=== PATIENT | female | born 1955 | race Caucasian/White ===

== ENCOUNTER 2018-08-05 11:16 | Inpatient (IN) | payer OTHER ==
[2018-08-05] MEDS: SOD CHLORIDE 0.9% 1,000 ML IV (11:56)
[2018-08-05] MEDS: ENALAPRILAT 1.25 MG INJ IV (11:56)
[2018-08-05] MEDS: SOD CHLORIDE 0.9% 100 ML (12:03)
[2018-08-05] MEDS: IOHEXOL 100 ML (12:03)
[2018-08-05 12:10] LABS: ADD MAN DIFF? NO
[2018-08-05 12:12] LABS: WHITE BLOOD COUNT 7.9 10^3/ul (4.8-10.8)
[2018-08-05 12:12] LABS: BASOPHIL # 0.1 10^3/ul (0.0-0.1); BASOPHILS % 0.8 % (0.0-2.0); EOSINOPHILS # 0.1 10^3/ul (0.0-0.5); EOSINOPHILS % 1.4 % (0.0-7.0); HEMATOCRIT 40.2 % (37.0-47.0); HEMOGLOBIN 13.5 g/dl (12.0-16.0); LYMPHOCYTES # 2.1 10^3/ul (0.8-2.9); LYMPHOCYTES % 27.1 % (15.0-51.0); MEAN CORPUSCULAR HEMOGLOBIN 27.1 pg (29.0-33.0); MEAN CORPUSCULAR HGB CONC 33.6 g/dl (32.0-37.0); MEAN CORPUSCULAR VOLUME 80.7 fl (82.0-101.0); MEAN PLATELET VOLUME 10.8 fl (7.4-10.4); MONOCYTE # 0.6 10^3/ul (0.3-0.9); MONOCYTES % 7.4 % (0.0-11.0); PLATELET COUNT 289 10^3/UL (140-415); RED BLOOD COUNT 4.98 10^6/ul (4.20-5.40); RED CELL DISTRIBUTION WIDTH 12.5 % (11.5-14.5)
[2018-08-05 12:31] LABS: ALANINE AMINOTRANSFERASE 17 IU/L (13-69); ALBUMIN 4.3 g/dl (3.3-4.9); ALBUMIN/GLOBULIN RATIO 1.16; ALKALINE PHOSPHATASE 84 IU/L (42-121); ANION GAP 9 (5-13); ASPARTATE AMINO TRANSFERASE 23 IU/L (15-46); BILIRUBIN,INDIRECT 0.9 mg/dl (0-1.1); BILIRUBIN,TOTAL 0.9 mg/dl (0.2-1.3); BLOOD UREA NITROGEN 8 mg/dl (7-20); CALCIUM 9.3 mg/dl (8.4-10.2); CARBON DIOXIDE 25 mmol/L (21-31); CHLORIDE 107 mmol/L (97-110); CREATINE KINASE 95 IU/L (23-200); CREATININE 0.51 mg/dl (0.44-1.00); Estimated GFR > 60 mL/min (>60); GLUCOSE 237 mg/dl (70-220); HDL CHOLESTEROL 47 mg/dl (35-98); POTASSIUM 3.4 mmol/L (3.5-5.1); SODIUM 141 mmol/L (135-144); TRIGLYCERIDES 226 mg/dl (0-149)
[2018-08-05 12:32] LABS: INR 0.99; PARTIAL THROMBOPLASTIN TIME 28.8 Sec (23.0-35.0); PROTIME 13.2 Sec (11.9-14.9)
[2018-08-05 12:36] LABS: CHOL/HDL RATIO 7.3 RATIO; CHOLESTEROL 344 mg/dl (100-200); ETHANOL < 10.0 mg/dl; LDL CHOLESTEROL,CALCULATED 252 mg/dl
[2018-08-05 12:42] LABS: CK INDEX 1.3; CK-MB 1.23 ng/ml (0.0-2.4); TROPONIN-I < 0.012 ng/ml (0.000-0.120)
[2018-08-05 12:44] LABS: HEMOGLOBIN A1C 7.8 % (0-5.9)
[2018-08-05] MEDS: ASPIRIN 325 MG TAB PO (12:57)
[2018-08-05 13:14] LABS: ADD UMIC NO; UR ASCORBIC ACID NEGATIVE (NEGATIVE); UR BILIRUBIN (Dip) NEGATIVE (NEGATIVE); UR BLOOD (Dip) NEGATIVE (NEGATIVE); UR CLARITY CLEAR (CLEAR); UR COLOR YELLOW (YELLOW); UR GLUCOSE (Dip) 2+ mg/dL (NEGATIVE); UR KETONES (Dip) NEGATIVE (NEGATIVE); UR LEUKOCYTE ESTERASE (Dip) NEGATIVE Leu/ul (NEGATIVE); UR NITRITE (Dip) NEGATIVE (NEGATIVE); UR SPECIFIC GRAVITY (Dip) 1.025 (1.003-1.030); UR TOTAL PROTEIN (Dip) NEGATIVE (NEGATIVE); UR UROBILINOGEN (Dip) NEGATIVE (NEGATIVE)
[2018-08-05] MEDS ORDERED: NACL 0.9% 3 ML SYG IV (14:00)
[2018-08-05] MEDS ORDERED: ONDANSETRON 4 MG INJ IV (14:00)
[2018-08-05] MEDS ORDERED: DEXTROSE 50% 50 ML SYRINGE IV ×2 (14:00)
[2018-08-05] MEDS ORDERED: GLUCOSE GEL 15 GRAM TUBE PO ×2 (14:00)
[2018-08-05] MEDS ORDERED: GLUCOSE GEL 15 GRAM TUBE BUCCAL (14:00)
[2018-08-05] MEDS ORDERED: morphine 2 MG INJ IV (14:00)
[2018-08-05] MEDS ORDERED: GLUCAGON 1 MG INJ IM (14:00)
[2018-08-05] MEDS: POTASSIUM CHLORIDE (SR) 20 MEQ TAB PO (14:14)
[2018-08-05] MEDS: INSULIN ASPART [NOVOLOG] 3 ML PEN SC ×4 (19:09→22:27)
[2018-08-05] MEDS: ATORVASTATIN 80 MG TAB PO (21:33)
[2018-08-05] MEDS: CLARITHROMYCIN 500 MG TAB PO (21:33)
[2018-08-05] MEDS: AMOXICILLIN 500 MG CAP PO (21:34)
[2018-08-05] MEDS: INSULIN GLARGINE [LANTus] (100 UNITS/ML) SYG SC (22:26)
[2018-08-06] MEDS: ACCU-CHEK XX (02:48)
[2018-08-06 05:40] LABS: ADD MAN DIFF? NO
[2018-08-06 05:42] LABS: BASOPHIL # 0.1 10^3/ul (0.0-0.1); BASOPHILS % 1.2 % (0.0-2.0); EOSINOPHILS # 0.2 10^3/ul (0.0-0.5); EOSINOPHILS % 2.6 % (0.0-7.0); HEMATOCRIT 37.6 % (37.0-47.0); HEMOGLOBIN 12.3 g/dl (12.0-16.0); LYMPHOCYTES # 2.3 10^3/ul (0.8-2.9); LYMPHOCYTES % 39.6 % (15.0-51.0); MEAN CORPUSCULAR HEMOGLOBIN 26.8 pg (29.0-33.0); MEAN CORPUSCULAR HGB CONC 32.7 g/dl (32.0-37.0); MEAN CORPUSCULAR VOLUME 81.9 fl (82.0-101.0); MEAN PLATELET VOLUME 10.3 fl (7.4-10.4); MONOCYTE # 0.4 10^3/ul (0.3-0.9); NEUTROPHIL # 2.9 10^3/ul (1.6-7.5); NEUTROPHILS % 49.4 % (39.0-77.0); PLATELET COUNT 246 10^3/UL (140-415); RED BLOOD COUNT 4.59 10^6/ul (4.20-5.40); RED CELL DISTRIBUTION WIDTH 12.5 % (11.5-14.5)
[2018-08-06 05:42] LABS: WHITE BLOOD COUNT 5.9 10^3/ul (4.8-10.8)
[2018-08-06] MEDS: PANTOPRAZOLE (EC) 40 MG TAB PO (06:07)
[2018-08-06 06:09] LABS: ALANINE AMINOTRANSFERASE 17 IU/L (13-69); ALBUMIN 3.8 g/dl (3.3-4.9); ALKALINE PHOSPHATASE 61 IU/L (42-121); ANION GAP 8 (5-13); ASPARTATE AMINO TRANSFERASE 22 IU/L (15-46); BLOOD UREA NITROGEN 6 mg/dl (7-20); CARBON DIOXIDE 29 mmol/L (21-31); CHLORIDE 106 mmol/L (97-110); Estimated GFR > 60 mL/min (>60); GLUCOSE 170 mg/dl (70-220); MAGNESIUM 1.9 mg/dl (1.7-2.5); POTASSIUM 3.7 mmol/L (3.5-5.1); SODIUM 143 mmol/L (135-144); TOTAL PROTEIN 6.5 g/dl (6.1-8.1)
[2018-08-06 06:52] LABS: ERYTHROCYTE SEDIMENTATION RATE 15 mm/Hr (0-30)
[2018-08-06] MEDS: INSULIN ASPART [NOVOLOG] 3 ML PEN SC ×7 (08:05→21:00)
[2018-08-06] MEDS: ASPIRIN 81 MG TAB PO (08:24)
[2018-08-06] MEDS: CLARITHROMYCIN 500 MG TAB PO ×2 (08:24→21:06)
[2018-08-06] MEDS: AMOXICILLIN 500 MG CAP PO ×2 (08:24→21:06)
[2018-08-06] MEDS: ENOXAPARIN 40 MG/0.4 ML SYG SC (08:29)
[2018-08-06 09:36] LABS: CARCINOEMBRYONIC ANTIGEN 3.4 ng/ml (0.0-5.0)
[2018-08-06] MEDS: LISINOPRIL 5 MG TAB PO (17:26)
[2018-08-06 20:03] LABS: RAPID PLASMA REAGIN NONREACTIVE (NR)
[2018-08-06] MEDS: ATORVASTATIN 80 MG TAB PO (21:06)
[2018-08-06] MEDS: hydrALAzine 20 MG INJ IV (21:07)
[2018-08-06] MEDS: INSULIN GLARGINE [LANTus] (100 UNITS/ML) SYG SC (21:17)
[2018-08-07] MEDS: ACCU-CHEK XX (01:37)
[2018-08-07 05:25] LABS: ADD MAN DIFF? NO
[2018-08-07 05:39] LABS: WHITE BLOOD COUNT 6.4 10^3/ul (4.8-10.8)
[2018-08-07 05:39] LABS: BASOPHIL # 0.1 10^3/ul (0.0-0.1); BASOPHILS % 1.2 % (0.0-2.0); EOSINOPHILS # 0.2 10^3/ul (0.0-0.5); EOSINOPHILS % 2.3 % (0.0-7.0); HEMATOCRIT 37.3 % (37.0-47.0); HEMOGLOBIN 12.7 g/dl (12.0-16.0); LYMPHOCYTES # 2.4 10^3/ul (0.8-2.9); LYMPHOCYTES % 37.4 % (15.0-51.0); MEAN CORPUSCULAR HEMOGLOBIN 27.5 pg (29.0-33.0); MEAN CORPUSCULAR VOLUME 80.9 fl (82.0-101.0); MEAN PLATELET VOLUME 10.9 fl (7.4-10.4); MONOCYTE # 0.5 10^3/ul (0.3-0.9); MONOCYTES % 8.4 % (0.0-11.0); NEUTROPHIL # 3.3 10^3/ul (1.6-7.5); NEUTROPHILS % 50.5 % (39.0-77.0); PLATELET COUNT 253 10^3/UL (140-415); RED BLOOD COUNT 4.61 10^6/ul (4.20-5.40); RED CELL DISTRIBUTION WIDTH 12.7 % (11.5-14.5)
[2018-08-07] MEDS: PANTOPRAZOLE (EC) 40 MG TAB PO (06:16)
[2018-08-07 06:25] LABS: ANION GAP 15 (5-13); BLOOD UREA NITROGEN 10 mg/dl (7-20); CALCIUM 9.1 mg/dl (8.4-10.2); CARBON DIOXIDE 25 mmol/L (21-31); CHLORIDE 107 mmol/L (97-110); CREATININE 0.51 mg/dl (0.44-1.00); Estimated GFR > 60 mL/min (>60); GLUCOSE 138 mg/dl (70-220); POTASSIUM 3.2 mmol/L (3.5-5.1); SODIUM 147 mmol/L (135-144)
[2018-08-07] MEDS: ACETAMINOPHEN 325 MG TAB PO (06:27)
[2018-08-07] MEDS: INSULIN ASPART [NOVOLOG] 3 ML PEN SC ×7 (08:02→20:25)
[2018-08-07] MEDS: CLARITHROMYCIN 500 MG TAB PO ×2 (08:28→20:24)
[2018-08-07] MEDS: ASPIRIN 81 MG TAB PO (08:29)
[2018-08-07] MEDS: AMOXICILLIN 500 MG CAP PO ×2 (08:29→20:24)
[2018-08-07] MEDS: ENOXAPARIN 40 MG/0.4 ML SYG SC (08:34)
[2018-08-07] MEDS: POTASSIUM CHLORIDE (SR) 20 MEQ TAB PO (13:19)
[2018-08-07] MEDS: SODIUM CHLORIDE 0.45% 500 ML BAG IV* (13:20)
[2018-08-07] MEDS ORDERED: LISINOPRIL 5 MG TAB PO (18:00)
[2018-08-07] MEDS: LISINOPRIL 5 MG TAB PO (18:29)
[2018-08-07] MEDS: ATORVASTATIN 80 MG TAB PO (20:24)
[2018-08-07] MEDS: INSULIN GLARGINE [LANTus] (100 UNITS/ML) SYG SC (20:31)
[2018-08-07] MEDS: hydrALAzine 20 MG INJ IV (20:34)
[2018-08-08] MEDS: BACLOFEN 10 MG TAB PO ×2 (01:06→20:19)
[2018-08-08] MEDS: ACCU-CHEK XX (01:06)
[2018-08-08] MEDS: PANTOPRAZOLE (EC) 40 MG TAB PO ×3 (05:45→17:50)
[2018-08-08 07:01] LABS: ANION GAP 11 (5-13); BLOOD UREA NITROGEN 10 mg/dl (7-20); CALCIUM 8.9 mg/dl (8.4-10.2); CARBON DIOXIDE 24 mmol/L (21-31); CHLORIDE 107 mmol/L (97-110); CREATININE 0.53 mg/dl (0.44-1.00); Estimated GFR > 60 mL/min (>60); GLUCOSE 110 mg/dl (70-220); MAGNESIUM 1.8 mg/dl (1.7-2.5); POTASSIUM 3.4 mmol/L (3.5-5.1); SODIUM 142 mmol/L (135-144)
[2018-08-08 07:53] LABS: AMPHETAMINE/METHAMPHETAMINE Negative (NEGATIVE); BARBITURATES Negative (NEGATIVE); BENZODIAZEPINES Negative (NEGATIVE); CANNABINOIDS Negative (NEGATIVE); COCAINE Negative (NEGATIVE); OPIATES Negative (NEGATIVE)
[2018-08-08] MEDS: INSULIN ASPART [NOVOLOG] 3 ML PEN SC ×7 (07:58→20:26)
[2018-08-08] MEDS: ASPIRIN 81 MG TAB PO (08:53)
[2018-08-08] MEDS: AMOXICILLIN 500 MG CAP PO ×3 (08:53→20:18)
[2018-08-08] MEDS: CLARITHROMYCIN 500 MG TAB PO ×2 (08:54→20:19)
[2018-08-08] MEDS ORDERED: BISMUTH SUBSALICYLATE 120 ML BTL PO (09:00)
[2018-08-08] MEDS: ENOXAPARIN 40 MG/0.4 ML SYG SC (09:10)
[2018-08-08 10:01] LABS: HEPATITIS C VIRAL ANTIBODY NEGATIVE (NEGATIVE)
[2018-08-08] MEDS: LISINOPRIL 5 MG TAB PO ×3 (10:05→20:19)
[2018-08-08 10:45] LABS: CANCER ANTIGEN 125 40.2 U/ml (0.0-35.0)
[2018-08-08] MEDS: hydrALAzine 20 MG INJ IV (11:48)
[2018-08-08] MEDS: ATORVASTATIN 80 MG TAB PO (20:19)
[2018-08-08] MEDS: INSULIN GLARGINE [LANTus] (100 UNITS/ML) SYG SC (20:26)
[2018-08-08] MEDS: DOCUSATE SODIUM 100 MG CAP PO (20:30)
[2018-08-08] MEDS: INFLUENZA VIRUS VACCINE 0.5 ML (DISPENSING) IM* (20:35)
[2018-08-09] MEDS: ACCU-CHEK XX (02:00)
[2018-08-09] MEDS: ACETAMINOPHEN 325 MG TAB PO (04:12)
[2018-08-09] MEDS: PANTOPRAZOLE (EC) 40 MG TAB PO ×2 (06:07→17:31)
[2018-08-09] MEDS: INSULIN ASPART [NOVOLOG] 3 ML PEN SC ×7 (07:39→20:21)
[2018-08-09] MEDS: LISINOPRIL 5 MG TAB PO (08:03)
[2018-08-09] MEDS: CLARITHROMYCIN 500 MG TAB PO ×2 (08:03→20:21)
[2018-08-09] MEDS: ASPIRIN 81 MG TAB PO (08:03)
[2018-08-09] MEDS: AMOXICILLIN 500 MG CAP PO ×2 (08:03→20:20)
[2018-08-09] MEDS: ENOXAPARIN 40 MG/0.4 ML SYG SC (08:07)
[2018-08-09] MEDS: LISINOPRIL 10 MG TAB PO (20:21)
[2018-08-09] MEDS: ATORVASTATIN 80 MG TAB PO (20:21)
[2018-08-09] MEDS: INSULIN GLARGINE [LANTus] (100 UNITS/ML) SYG SC (20:27)
[2018-08-10] MEDS: ACCU-CHEK XX (02:53)
[2018-08-10] MEDS: PANTOPRAZOLE (EC) 40 MG TAB PO ×2 (06:21→17:18)
[2018-08-10] MEDS: INSULIN ASPART [NOVOLOG] 3 ML PEN SC ×7 (07:55→20:38)
[2018-08-10] MEDS: LISINOPRIL 10 MG TAB PO ×2 (08:45→20:32)
[2018-08-10] MEDS: CLARITHROMYCIN 500 MG TAB PO ×2 (08:45→20:32)
[2018-08-10] MEDS: AMOXICILLIN 500 MG CAP PO ×2 (08:45→20:32)
[2018-08-10] MEDS: ASPIRIN 81 MG TAB PO (08:45)
[2018-08-10] MEDS: ENOXAPARIN 40 MG/0.4 ML SYG SC (08:56)
[2018-08-10] MEDS: hydrALAzine 20 MG INJ IV (12:03)
[2018-08-10] MEDS: AMLODIPINE 2.5 MG TAB PO (12:03)
[2018-08-10] MEDS: ATORVASTATIN 80 MG TAB PO (20:32)
[2018-08-10] MEDS: INSULIN GLARGINE [LANTus] (100 UNITS/ML) SYG SC (20:47)
[2018-08-11] MEDS: ACCU-CHEK XX (02:46)
[2018-08-11 05:42] LABS: WHITE BLOOD COUNT 6.8 10^3/ul (4.8-10.8)
[2018-08-11 05:42] LABS: ADD MAN DIFF? NO; BASOPHIL # 0.1 10^3/ul (0.0-0.1); EOSINOPHILS # 0.2 10^3/ul (0.0-0.5); EOSINOPHILS % 2.8 % (0.0-7.0); HEMATOCRIT 37.8 % (37.0-47.0); HEMOGLOBIN 12.3 g/dl (12.0-16.0); LYMPHOCYTES # 2.2 10^3/ul (0.8-2.9); LYMPHOCYTES % 33.1 % (15.0-51.0); MEAN CORPUSCULAR HGB CONC 32.5 g/dl (32.0-37.0); MEAN CORPUSCULAR VOLUME 83.1 fl (82.0-101.0); MEAN PLATELET VOLUME 10.8 fl (7.4-10.4); MONOCYTE # 0.6 10^3/ul (0.3-0.9); MONOCYTES % 8.6 % (0.0-11.0); NEUTROPHIL # 3.7 10^3/ul (1.6-7.5); NEUTROPHILS % 54.2 % (39.0-77.0); PLATELET COUNT 241 10^3/UL (140-415); RED BLOOD COUNT 4.55 10^6/ul (4.20-5.40)
[2018-08-11] MEDS: PANTOPRAZOLE (EC) 40 MG TAB PO ×2 (05:59→18:10)
[2018-08-11 06:13] LABS: ANION GAP 9 (5-13); BLOOD UREA NITROGEN 16 mg/dl (7-20); CALCIUM 8.8 mg/dl (8.4-10.2); CARBON DIOXIDE 27 mmol/L (21-31); CHLORIDE 106 mmol/L (97-110); CREATININE 0.55 mg/dl (0.44-1.00); Estimated GFR > 60 mL/min (>60); GLUCOSE 133 mg/dl (70-220); POTASSIUM 3.9 mmol/L (3.5-5.1); SODIUM 142 mmol/L (135-144)
[2018-08-11] MEDS: INSULIN ASPART [NOVOLOG] 3 ML PEN SC ×7 (08:00→21:00)
[2018-08-11] MEDS: AMOXICILLIN 500 MG CAP PO ×2 (09:56→21:10)
[2018-08-11] MEDS: CLARITHROMYCIN 500 MG TAB PO ×2 (09:56→21:10)
[2018-08-11] MEDS: AMLODIPINE 2.5 MG TAB PO (09:57)
[2018-08-11] MEDS: ASPIRIN 81 MG TAB PO (09:57)
[2018-08-11] MEDS: LISINOPRIL 10 MG TAB PO ×2 (09:57→21:11)
[2018-08-11] MEDS: ENOXAPARIN 40 MG/0.4 ML SYG SC (09:59)
[2018-08-11] MEDS: ATORVASTATIN 80 MG TAB PO (21:10)
[2018-08-11] MEDS: INSULIN GLARGINE [LANTus] (100 UNITS/ML) SYG SC (21:22)
[2018-08-12] MEDS: ACCU-CHEK XX (01:43)
[2018-08-12] MEDS: PANTOPRAZOLE (EC) 40 MG TAB PO ×2 (05:54→17:43)
[2018-08-12] MEDS: DOCUSATE SODIUM 100 MG CAP PO (05:58)
[2018-08-12] MEDS: INSULIN ASPART [NOVOLOG] 3 ML PEN SC ×6 (08:04→17:55)
[2018-08-12] MEDS: LISINOPRIL 10 MG TAB PO (08:28)
[2018-08-12] MEDS: AMLODIPINE 2.5 MG TAB PO (08:29)
[2018-08-12] MEDS: ASPIRIN 81 MG TAB PO (08:29)
[2018-08-12] MEDS: AMOXICILLIN 500 MG CAP PO (08:29)
[2018-08-12] MEDS: CLARITHROMYCIN 500 MG TAB PO (08:29)
[2018-08-12] MEDS: ENOXAPARIN 40 MG/0.4 ML SYG SC (08:31)
[2018-08-12] MEDS: INSULIN GLARGINE [LANTus] (100 UNITS/ML) SYG SC (19:46)
== END 2018-08-12 19:50 | DRG 65 ==
LOC: E/R 11:16 → 6WM 16:50
PROVIDERS: Internal Medicine
DX: I63.50 Cerebral infarction due to unspecified occlusion or stenosis of unspecified cerebral artery (principal); G81.94 Hemiplegia, unspecified affecting left nondominant side; I16.1 Hypertensive emergency; I50.32 Chronic diastolic (congestive) heart failure; E78.5 Hyperlipidemia, unspecified; E11.65 Type 2 diabetes mellitus with hyperglycemia; N83.201 Unspecified ovarian cyst, right side; E87.6 Hypokalemia; I11.0 Hypertensive heart disease with heart failure; K27.7 Chronic peptic ulcer, site unspecified, without hemorrhage or perforation; B96.81 Helicobacter pylori [H. pylori] as the cause of diseases classified elsewhere; R97.1 Elevated cancer antigen 125 [CA 125]; I65.23 Occlusion and stenosis of bilateral carotid arteries; Z79.84 Long term (current) use of oral hypoglycemic drugs
CPT/HCPCS: 36415; 70450; 70496; 70498; 70551; 71045; 72196; 76705; 80048; 80053; 80061; 80307; 81003; 82378; 82550; 82553; 82962; 83036; 83735; 84100; 84443; 84484; 85025; 85610; 85651; 85730; 86304; 86592; 86803; 90686; 92523; 92526; 92610; 93306; 96374; 97110; 97163; 97167; 97530; 99291-25

== ENCOUNTER 2018-08-12 20:14 | Inpatient (IN) | payer OTHER ==
[2018-08-12] MEDS ORDERED: GLUCAGON 1 MG INJ IM (21:13)
[2018-08-12] MEDS ORDERED: NACL 0.9% 3 ML SYG IV (21:13)
[2018-08-12] MEDS ORDERED: INSULIN ASPART [NOVOLOG] 3 ML PEN SC ×2 (21:13)
[2018-08-12] MEDS ORDERED: BISMUTH SUBSALICYLATE 120 ML BTL PO (21:13)
[2018-08-12] MEDS ORDERED: ENOXAPARIN 40 MG/0.4 ML SYG SC (21:13)
[2018-08-12] MEDS ORDERED: INSULIN GLARGINE [LANTus] (100 UNITS/ML) SYG SC (21:13)
[2018-08-12] MEDS ORDERED: hydrALAzine 20 MG INJ IV (21:13)
[2018-08-12] MEDS ORDERED: ONDANSETRON 4 MG INJ IV (21:13)
[2018-08-12] MEDS ORDERED: ACCU-CHEK XX (21:13)
[2018-08-12] MEDS ORDERED: GLUCOSE GEL 15 GRAM TUBE BUCCAL (21:13)
[2018-08-12] MEDS ORDERED: GLUCOSE GEL 15 GRAM TUBE PO ×2 (21:13)
[2018-08-12] MEDS ORDERED: DEXTROSE 50% 50 ML SYRINGE IV ×2 (21:13)
[2018-08-12] MEDS ORDERED: DOCUSATE SODIUM 100 MG CAP PO (21:13)
[2018-08-12] MEDS ORDERED: morphine 2 MG INJ IV (21:13)
[2018-08-13] MEDS: PANTOPRAZOLE (EC) 40 MG TAB PO ×2 (06:39→17:34)
[2018-08-13 07:19] LABS: ADD MAN DIFF? NO
[2018-08-13 07:24] LABS: WHITE BLOOD COUNT 7.6 10^3/ul (4.8-10.8)
[2018-08-13 07:24] LABS: BASOPHIL # 0.1 10^3/ul (0.0-0.1); BASOPHILS % 1.2 % (0.0-2.0); EOSINOPHILS # 0.2 10^3/ul (0.0-0.5); EOSINOPHILS % 2.5 % (0.0-7.0); HEMATOCRIT 40.3 % (37.0-47.0); HEMOGLOBIN 12.9 g/dl (12.0-16.0); LYMPHOCYTES # 2.3 10^3/ul (0.8-2.9); LYMPHOCYTES % 29.7 % (15.0-51.0); MEAN CORPUSCULAR HEMOGLOBIN 26.7 pg (29.0-33.0); MEAN CORPUSCULAR VOLUME 83.3 fl (82.0-101.0); MEAN PLATELET VOLUME 11.2 fl (7.4-10.4); MONOCYTE # 0.7 10^3/ul (0.3-0.9); MONOCYTES % 8.9 % (0.0-11.0); NEUTROPHIL # 4.4 10^3/ul (1.6-7.5); NEUTROPHILS % 57.4 % (39.0-77.0); PLATELET COUNT 265 10^3/UL (140-415); RED BLOOD COUNT 4.84 10^6/ul (4.20-5.40)
[2018-08-13] MEDS: ACCU-CHEK XX ×2 (07:43→17:28)
[2018-08-13 07:48] LABS: ALANINE AMINOTRANSFERASE 71 IU/L (13-69); ALBUMIN 3.9 g/dl (3.3-4.9); ALBUMIN/GLOBULIN RATIO 1.11; ALKALINE PHOSPHATASE 85 IU/L (42-121); ANION GAP 11 (5-13); ASPARTATE AMINO TRANSFERASE 67 IU/L (15-46); BILIRUBIN,INDIRECT 0.5 mg/dl (0-1.1); BILIRUBIN,TOTAL 0.5 mg/dl (0.2-1.3); BLOOD UREA NITROGEN 19 mg/dl (7-20); CALCIUM 9.4 mg/dl (8.4-10.2); CARBON DIOXIDE 26 mmol/L (21-31); CHLORIDE 106 mmol/L (97-110); CREATININE 0.61 mg/dl (0.44-1.00); Estimated GFR > 60 mL/min (>60); GLUCOSE 165 mg/dl (70-220); POTASSIUM 4.1 mmol/L (3.5-5.1); SODIUM 143 mmol/L (135-144); TOTAL PROTEIN 7.4 g/dl (6.1-8.1)
[2018-08-13] MEDS: metFORMIN 500 MG TAB PO ×2 (08:41→17:33)
[2018-08-13] MEDS: AMOXICILLIN 500 MG CAP PO ×2 (08:41→21:59)
[2018-08-13] MEDS: AMLODIPINE 2.5 MG TAB PO (08:41)
[2018-08-13] MEDS: LISINOPRIL 10 MG TAB PO ×2 (08:42→21:59)
[2018-08-13] MEDS: ASPIRIN 81 MG TAB PO (08:42)
[2018-08-13] MEDS: CLARITHROMYCIN 500 MG TAB PO ×2 (08:45→21:50)
[2018-08-13 11:00] LABS: ADD UMIC YES; UR ASCORBIC ACID NEGATIVE (NEGATIVE); UR BACTERIA FEW /HPF (NONE SEEN); UR BILIRUBIN (Dip) NEGATIVE (NEGATIVE); UR BLOOD (Dip) NEGATIVE (NEGATIVE); UR CLARITY SLIGHTLY CLOUDY (CLEAR); UR COLOR YELLOW (YELLOW); UR GLUCOSE (Dip) NEGATIVE (NEGATIVE); UR KETONES (Dip) NEGATIVE (NEGATIVE); UR LEUKOCYTE ESTERASE (Dip) NEGATIVE Leu/ul (NEGATIVE); UR MUCUS MANY /HPF (NONE SEEN); UR NITRITE (Dip) NEGATIVE (NEGATIVE); UR RBC 1 /HPF (0-5); UR SPECIFIC GRAVITY (Dip) 1.025 (1.003-1.030); UR SQUAMOUS EPITHELIAL CELL FEW /HPF (FEW); UR TOTAL PROTEIN (Dip) 1+ mg/dl (NEGATIVE); UR UROBILINOGEN (Dip) NEGATIVE (NEGATIVE); UR WBC 3 /HPF (0-5)
[2018-08-13] MEDS: ACETAMINOPHEN 325 MG TAB PO (18:27)
[2018-08-13] MEDS: DOCUSATE SODIUM 100 MG CAP PO (21:50)
[2018-08-13] MEDS: ATORVASTATIN 80 MG TAB PO (21:59)
[2018-08-14] MEDS: PANTOPRAZOLE (EC) 40 MG TAB PO ×2 (06:33→17:42)
[2018-08-14] MEDS: ACCU-CHEK XX ×2 (07:57→17:34)
[2018-08-14] MEDS: metFORMIN 500 MG TAB PO ×2 (07:58→17:36)
[2018-08-14] MEDS: AMOXICILLIN 500 MG CAP PO ×2 (09:09→20:33)
[2018-08-14] MEDS: SENNA TAB PO (09:09)
[2018-08-14] MEDS: ASPIRIN 81 MG TAB PO (09:09)
[2018-08-14] MEDS: CLARITHROMYCIN 500 MG TAB PO ×2 (09:09→20:33)
[2018-08-14] MEDS: DOCUSATE SODIUM 100 MG CAP PO ×2 (09:09→20:33)
[2018-08-14] MEDS: AMLODIPINE 2.5 MG TAB PO (09:23)
[2018-08-14] MEDS: LISINOPRIL 10 MG TAB PO ×2 (09:23→20:33)
[2018-08-14] MEDS: ENOXAPARIN 40 MG/0.4 ML SYG SC (09:33)
[2018-08-14] MEDS: ATORVASTATIN 80 MG TAB PO (20:33)
[2018-08-15] MEDS: PANTOPRAZOLE (EC) 40 MG TAB PO ×2 (06:40→17:18)
[2018-08-15] MEDS: AMLODIPINE 2.5 MG TAB PO ×2 (09:00→12:56)
[2018-08-15] MEDS: LISINOPRIL 10 MG TAB PO ×3 (09:00→20:39)
[2018-08-15] MEDS: ACCU-CHEK XX ×2 (09:04→17:15)
[2018-08-15] MEDS: ENOXAPARIN 40 MG/0.4 ML SYG SC (09:20)
[2018-08-15] MEDS: ASPIRIN 81 MG TAB PO (09:22)
[2018-08-15] MEDS: metFORMIN 500 MG TAB PO ×2 (09:22→17:16)
[2018-08-15] MEDS: DOCUSATE SODIUM 100 MG CAP PO ×2 (09:22→20:39)
[2018-08-15] MEDS: SENNA TAB PO (09:22)
[2018-08-15] MEDS: CLARITHROMYCIN 500 MG TAB PO (09:23)
[2018-08-15] MEDS: AMOXICILLIN 500 MG CAP PO ×2 (09:23→20:40)
[2018-08-15] MEDS: CIPROFLOXACIN 500 MG TAB PO (17:16)
[2018-08-15] MEDS: ATORVASTATIN 80 MG TAB PO (20:39)
[2018-08-16] MEDS: CIPROFLOXACIN 500 MG TAB PO ×2 (06:12→17:23)
[2018-08-16] MEDS: PANTOPRAZOLE (EC) 40 MG TAB PO ×2 (06:12→17:23)
[2018-08-16] MEDS: ACCU-CHEK XX ×2 (07:55→17:23)
[2018-08-16] MEDS: metFORMIN 500 MG TAB PO ×2 (08:00→17:23)
[2018-08-16] MEDS: AMOXICILLIN 500 MG CAP PO ×2 (08:54→20:03)
[2018-08-16] MEDS: ASPIRIN 81 MG TAB PO (08:55)
[2018-08-16] MEDS: AMLODIPINE 2.5 MG TAB PO (08:55)
[2018-08-16] MEDS: SENNA TAB PO (08:56)
[2018-08-16] MEDS: LISINOPRIL 10 MG TAB PO ×2 (08:56→20:03)
[2018-08-16] MEDS: DOCUSATE SODIUM 100 MG CAP PO ×2 (08:56→20:03)
[2018-08-16] MEDS: ENOXAPARIN 40 MG/0.4 ML SYG SC (09:01)
[2018-08-16] MEDS: ATORVASTATIN 80 MG TAB PO (20:03)
[2018-08-17] MEDS: MAGNESIUM HYDROXIDE 30ML CUP PO (01:43)
[2018-08-17] MEDS: CIPROFLOXACIN 500 MG TAB PO ×2 (05:39→17:39)
[2018-08-17] MEDS: PANTOPRAZOLE (EC) 40 MG TAB PO ×2 (05:39→17:47)
[2018-08-17] MEDS: ACCU-CHEK XX ×2 (07:37→17:22)
[2018-08-17] MEDS: ASPIRIN 81 MG TAB PO (08:28)
[2018-08-17] MEDS: metFORMIN 500 MG TAB PO ×2 (08:28→17:39)
[2018-08-17] MEDS: SENNA TAB PO (08:28)
[2018-08-17] MEDS: DOCUSATE SODIUM 100 MG CAP PO ×2 (08:28→20:26)
[2018-08-17] MEDS: AMOXICILLIN 500 MG CAP PO ×2 (08:28→20:35)
[2018-08-17] MEDS: LISINOPRIL 10 MG TAB PO ×2 (08:29→20:27)
[2018-08-17] MEDS: AMLODIPINE 2.5 MG TAB PO (08:29)
[2018-08-17] MEDS: ENOXAPARIN 40 MG/0.4 ML SYG SC (08:32)
[2018-08-17] MEDS: ONDANSETRON (ODT) 4 MG TAB ODT (17:39)
[2018-08-17] MEDS: ATORVASTATIN 80 MG TAB PO (20:26)
[2018-08-18] MEDS: CIPROFLOXACIN 500 MG TAB PO ×2 (06:28→17:15)
[2018-08-18] MEDS: PANTOPRAZOLE (EC) 40 MG TAB PO ×2 (06:29→17:15)
[2018-08-18] MEDS: ACCU-CHEK XX ×2 (07:05→17:05)
[2018-08-18] MEDS: metFORMIN 500 MG TAB PO ×2 (07:36→17:15)
[2018-08-18] MEDS: DOCUSATE SODIUM 100 MG CAP PO ×2 (08:31→22:02)
[2018-08-18] MEDS: LISINOPRIL 10 MG TAB PO ×2 (08:31→22:03)
[2018-08-18] MEDS: AMLODIPINE 2.5 MG TAB PO (08:31)
[2018-08-18] MEDS: SENNA TAB PO (08:31)
[2018-08-18] MEDS: ASPIRIN 81 MG TAB PO (08:31)
[2018-08-18] MEDS: ENOXAPARIN 40 MG/0.4 ML SYG SC (08:32)
[2018-08-18] MEDS: ATORVASTATIN 80 MG TAB PO (22:02)
[2018-08-18] MEDS: LACTULOSE 30ML CUP PO (22:03)
[2018-08-19] MEDS: PANTOPRAZOLE (EC) 40 MG TAB PO ×2 (06:12→17:21)
[2018-08-19] MEDS: CIPROFLOXACIN 500 MG TAB PO ×2 (06:12→17:21)
[2018-08-19] MEDS: ACCU-CHEK XX ×2 (07:05→16:52)
[2018-08-19] MEDS: metFORMIN 500 MG TAB PO ×2 (08:03→16:52)
[2018-08-19] MEDS: ENOXAPARIN 40 MG/0.4 ML SYG SC (09:10)
[2018-08-19] MEDS: SENNA TAB PO (09:10)
[2018-08-19] MEDS: ASPIRIN 81 MG TAB PO (09:10)
[2018-08-19] MEDS: AMLODIPINE 2.5 MG TAB PO (09:10)
[2018-08-19] MEDS: LISINOPRIL 10 MG TAB PO ×2 (09:11→20:44)
[2018-08-19] MEDS: DOCUSATE SODIUM 100 MG CAP PO ×2 (09:11→20:44)
[2018-08-19] MEDS: ATORVASTATIN 80 MG TAB PO (20:44)
[2018-08-20] MEDS: CIPROFLOXACIN 500 MG TAB PO (05:35)
[2018-08-20] MEDS: PANTOPRAZOLE (EC) 40 MG TAB PO ×2 (05:35→17:12)
[2018-08-20] MEDS: ACCU-CHEK XX ×2 (07:40→17:12)
[2018-08-20] MEDS: metFORMIN 500 MG TAB PO ×2 (07:44→17:13)
[2018-08-20] MEDS: ASPIRIN 81 MG TAB PO ×2 (09:00→09:51)
[2018-08-20] MEDS: AMLODIPINE 2.5 MG TAB PO ×2 (09:00→09:51)
[2018-08-20] MEDS: LISINOPRIL 10 MG TAB PO ×3 (09:00→20:33)
[2018-08-20] MEDS: SENNA TAB PO (09:51)
[2018-08-20] MEDS: DOCUSATE SODIUM 100 MG CAP PO ×2 (09:51→20:33)
[2018-08-20] MEDS: ENOXAPARIN 40 MG/0.4 ML SYG SC (09:54)
[2018-08-20] MEDS: ONDANSETRON (ODT) 4 MG TAB ODT (12:31)
[2018-08-20] MEDS: ATORVASTATIN 80 MG TAB PO (20:33)
[2018-08-21] MEDS: PANTOPRAZOLE (EC) 40 MG TAB PO ×2 (07:15→17:44)
[2018-08-21] MEDS: metFORMIN 500 MG TAB PO ×2 (08:15→17:42)
[2018-08-21] MEDS: ACCU-CHEK XX ×2 (08:15→17:42)
[2018-08-21] MEDS: ASPIRIN 81 MG TAB PO (09:30)
[2018-08-21] MEDS: LISINOPRIL 10 MG TAB PO ×2 (09:30→21:10)
[2018-08-21] MEDS: SENNA TAB PO (09:30)
[2018-08-21] MEDS: DOCUSATE SODIUM 100 MG CAP PO ×2 (09:31→21:00)
[2018-08-21] MEDS: ONDANSETRON (ODT) 4 MG TAB ODT (09:31)
[2018-08-21] MEDS: AMLODIPINE 2.5 MG TAB PO (09:31)
[2018-08-21] MEDS: ACETAMINOPHEN 325 MG TAB PO (09:31)
[2018-08-21] MEDS: ENOXAPARIN 40 MG/0.4 ML SYG SC (09:34)
[2018-08-21] MEDS: BACLOFEN 10 MG TAB PO (14:18)
[2018-08-21] MEDS: ATORVASTATIN 80 MG TAB PO (21:10)
[2018-08-22] MEDS: PANTOPRAZOLE (EC) 40 MG TAB PO ×2 (05:29→17:36)
[2018-08-22] MEDS: ACCU-CHEK XX ×2 (07:05→17:05)
[2018-08-22] MEDS: metFORMIN 500 MG TAB PO ×2 (07:59→17:36)
[2018-08-22] MEDS: SENNA TAB PO (08:53)
[2018-08-22] MEDS: ASPIRIN 81 MG TAB PO (08:53)
[2018-08-22] MEDS: DOCUSATE SODIUM 100 MG CAP PO ×2 (08:53→20:07)
[2018-08-22] MEDS: LISINOPRIL 10 MG TAB PO ×2 (08:53→20:13)
[2018-08-22] MEDS: AMLODIPINE 2.5 MG TAB PO (08:53)
[2018-08-22] MEDS: ENOXAPARIN 40 MG/0.4 ML SYG SC (08:54)
[2018-08-22] MEDS: ONDANSETRON (ODT) 4 MG TAB ODT (12:41)
[2018-08-22] MEDS: ACETAMINOPHEN 325 MG TAB PO (16:07)
[2018-08-22] MEDS: ATORVASTATIN 80 MG TAB PO (20:07)
[2018-08-23] MEDS: PANTOPRAZOLE (EC) 40 MG TAB PO ×2 (05:34→17:17)
[2018-08-23] MEDS: ACCU-CHEK XX ×2 (08:05→17:17)
[2018-08-23] MEDS: SENNA TAB PO (08:16)
[2018-08-23] MEDS: DOCUSATE SODIUM 100 MG CAP PO ×2 (08:16→20:52)
[2018-08-23] MEDS: metFORMIN 500 MG TAB PO ×2 (08:16→17:17)
[2018-08-23] MEDS: ASPIRIN 81 MG TAB PO (08:16)
[2018-08-23] MEDS: AMLODIPINE 2.5 MG TAB PO (08:19)
[2018-08-23] MEDS: LISINOPRIL 10 MG TAB PO ×2 (08:19→21:03)
[2018-08-23] MEDS: ENOXAPARIN 40 MG/0.4 ML SYG SC (08:20)
[2018-08-23] MEDS: ATORVASTATIN 80 MG TAB PO (20:49)
[2018-08-23] MEDS: ACETAMINOPHEN 325 MG TAB PO (20:49)
[2018-08-24] MEDS: PANTOPRAZOLE (EC) 40 MG TAB PO ×2 (05:55→17:37)
[2018-08-24] MEDS: metFORMIN 500 MG TAB PO ×2 (07:52→17:37)
[2018-08-24] MEDS: ACCU-CHEK XX ×2 (07:52→17:37)
[2018-08-24] MEDS: DOCUSATE SODIUM 100 MG CAP PO ×2 (09:00→20:12)
[2018-08-24] MEDS: SENNA TAB PO (09:00)
[2018-08-24] MEDS: LISINOPRIL 10 MG TAB PO ×2 (09:09→20:22)
[2018-08-24] MEDS: AMLODIPINE 2.5 MG TAB PO (09:09)
[2018-08-24] MEDS: ASPIRIN 81 MG TAB PO (09:09)
[2018-08-24] MEDS: ENOXAPARIN 40 MG/0.4 ML SYG SC (09:10)
[2018-08-24] MEDS: ATORVASTATIN 80 MG TAB PO (20:12)
[2018-08-25] MEDS: PANTOPRAZOLE (EC) 40 MG TAB PO ×2 (05:45→17:36)
[2018-08-25] MEDS: ACCU-CHEK XX ×2 (07:05→17:05)
[2018-08-25] MEDS: metFORMIN 500 MG TAB PO ×2 (08:01→17:36)
[2018-08-25] MEDS: ASPIRIN 81 MG TAB PO (09:00)
[2018-08-25] MEDS: AMLODIPINE 2.5 MG TAB PO (09:00)
[2018-08-25] MEDS: LISINOPRIL 10 MG TAB PO ×2 (09:00→20:36)
[2018-08-25] MEDS: DOCUSATE SODIUM 100 MG CAP PO ×2 (09:00→20:39)
[2018-08-25] MEDS: SENNA TAB PO (09:00)
[2018-08-25] MEDS: ENOXAPARIN 40 MG/0.4 ML SYG SC (09:01)
[2018-08-25] MEDS: ONDANSETRON (ODT) 4 MG TAB ODT (13:54)
[2018-08-25] MEDS: BACLOFEN 10 MG TAB PO (16:51)
[2018-08-25] MEDS: ATORVASTATIN 80 MG TAB PO (20:36)
[2018-08-25] MEDS: ACETAMINOPHEN 325 MG TAB PO (22:53)
[2018-08-26] MEDS: PANTOPRAZOLE (EC) 40 MG TAB PO ×2 (05:52→17:19)
[2018-08-26] MEDS: ACCU-CHEK XX ×2 (07:05→17:05)
[2018-08-26] MEDS: metFORMIN 500 MG TAB PO ×2 (07:49→17:19)
[2018-08-26] MEDS: LISINOPRIL 10 MG TAB PO ×2 (08:52→20:31)
[2018-08-26] MEDS: ACETAMINOPHEN 325 MG TAB PO (08:52)
[2018-08-26] MEDS: ONDANSETRON (ODT) 4 MG TAB ODT (08:52)
[2018-08-26] MEDS: SENNA TAB PO (08:52)
[2018-08-26] MEDS: ENOXAPARIN 40 MG/0.4 ML SYG SC (08:52)
[2018-08-26] MEDS: ASPIRIN 81 MG TAB PO (08:52)
[2018-08-26] MEDS: DOCUSATE SODIUM 100 MG CAP PO ×2 (08:52→20:30)
[2018-08-26] MEDS: AMLODIPINE 2.5 MG TAB PO (08:59)
[2018-08-26] MEDS: LACTULOSE 30ML CUP PO (20:30)
[2018-08-26] MEDS: ATORVASTATIN 80 MG TAB PO (20:30)
[2018-08-27] MEDS: PANTOPRAZOLE (EC) 40 MG TAB PO ×2 (06:27→17:23)
[2018-08-27] MEDS: ACETAMINOPHEN 325 MG TAB PO ×2 (06:27→20:01)
[2018-08-27] MEDS: metFORMIN 500 MG TAB PO ×2 (07:52→18:04)
[2018-08-27] MEDS: ACCU-CHEK XX ×2 (07:52→18:04)
[2018-08-27] MEDS: ASPIRIN 81 MG TAB PO (08:24)
[2018-08-27] MEDS: LISINOPRIL 10 MG TAB PO ×2 (08:24→20:01)
[2018-08-27] MEDS: AMLODIPINE 2.5 MG TAB PO (08:24)
[2018-08-27] MEDS: SENNA TAB PO (08:25)
[2018-08-27] MEDS: DOCUSATE SODIUM 100 MG CAP PO ×2 (08:25→20:06)
[2018-08-27] MEDS: ENOXAPARIN 40 MG/0.4 ML SYG SC (09:00)
[2018-08-27] MEDS: BACLOFEN 10 MG TAB PO (19:56)
[2018-08-27] MEDS: ATORVASTATIN 80 MG TAB PO (20:01)
[2018-08-27] MEDS: HYDROCODONE/APAP (5/325) TAB PO (21:43)
[2018-08-28] MEDS: PANTOPRAZOLE (EC) 40 MG TAB PO ×2 (05:45→17:25)
[2018-08-28] MEDS: metFORMIN 500 MG TAB PO ×2 (07:44→17:25)
[2018-08-28] MEDS: ACCU-CHEK XX ×2 (07:44→17:25)
[2018-08-28] MEDS: HYDROCODONE/APAP (5/325) TAB PO ×2 (07:45→17:25)
[2018-08-28] MEDS: DOCUSATE SODIUM 100 MG CAP PO ×2 (09:00→20:34)
[2018-08-28] MEDS: SENNA TAB PO (09:00)
[2018-08-28] MEDS: AMLODIPINE 2.5 MG TAB PO (09:01)
[2018-08-28] MEDS: ASPIRIN 81 MG TAB PO (09:02)
[2018-08-28] MEDS: LISINOPRIL 10 MG TAB PO ×2 (09:02→20:34)
[2018-08-28] MEDS: ENOXAPARIN 40 MG/0.4 ML SYG SC (09:05)
[2018-08-28] MEDS: ATORVASTATIN 80 MG TAB PO (20:31)
[2018-08-29] MEDS: PANTOPRAZOLE (EC) 40 MG TAB PO (06:51)
[2018-08-29] MEDS: ONDANSETRON (ODT) 4 MG TAB ODT (06:52)
[2018-08-29] MEDS: ACCU-CHEK XX ×2 (08:17→17:17)
[2018-08-29] MEDS: ENOXAPARIN 40 MG/0.4 ML SYG SC (08:30)
[2018-08-29] MEDS: ASPIRIN 81 MG TAB PO (09:59)
[2018-08-29] MEDS: metFORMIN 500 MG TAB PO ×2 (09:59→17:17)
[2018-08-29] MEDS: LISINOPRIL 10 MG TAB PO ×2 (09:59→20:25)
[2018-08-29] MEDS: DOCUSATE SODIUM 100 MG CAP PO ×2 (10:00→20:25)
[2018-08-29] MEDS: AMLODIPINE 2.5 MG TAB PO (10:00)
[2018-08-29] MEDS: SENNA TAB PO (10:00)
[2018-08-29 10:01] LABS: ADD MAN DIFF? NO
[2018-08-29 10:05] LABS: WHITE BLOOD COUNT 7.5 10^3/ul (4.8-10.8)
[2018-08-29 10:05] LABS: BASOPHIL # 0.1 10^3/ul (0.0-0.1); BASOPHILS % 0.8 % (0.0-2.0); EOSINOPHILS # 0.2 10^3/ul (0.0-0.5); EOSINOPHILS % 2.1 % (0.0-7.0); HEMATOCRIT 36.9 % (37.0-47.0); HEMOGLOBIN 12.1 g/dl (12.0-16.0); LYMPHOCYTES # 1.6 10^3/ul (0.8-2.9); LYMPHOCYTES % 21.3 % (15.0-51.0); MEAN CORPUSCULAR HEMOGLOBIN 27.3 pg (29.0-33.0); MEAN CORPUSCULAR HGB CONC 32.8 g/dl (32.0-37.0); MEAN CORPUSCULAR VOLUME 83.1 fl (82.0-101.0); MEAN PLATELET VOLUME 11.2 fl (7.4-10.4); MONOCYTE # 0.4 10^3/ul (0.3-0.9); MONOCYTES % 5.7 % (0.0-11.0); NEUTROPHIL # 5.2 10^3/ul (1.6-7.5); NEUTROPHILS % 69.7 % (39.0-77.0); PLATELET COUNT 266 10^3/UL (140-415); RED BLOOD COUNT 4.44 10^6/ul (4.20-5.40); RED CELL DISTRIBUTION WIDTH 12.4 % (11.5-14.5)
[2018-08-29 10:28] LABS: ANION GAP 11 (5-13); BLOOD UREA NITROGEN 18 mg/dl (7-20); CARBON DIOXIDE 24 mmol/L (21-31); CHLORIDE 103 mmol/L (97-110); CREATININE 0.86 mg/dl (0.44-1.00); Estimated GFR > 60 mL/min (>60); GLUCOSE 217 mg/dl (70-220); POTASSIUM 4.2 mmol/L (3.5-5.1); SODIUM 138 mmol/L (135-144)
[2018-08-29] MEDS: METOCLOPRAMIDE 5 MG TAB PO (12:25)
[2018-08-29] MEDS: BACLOFEN 10 MG TAB PO (12:32)
[2018-08-29 14:05] LABS: MAGNESIUM 1.5 mg/dl (1.7-2.5)
[2018-08-29] MEDS: MAGNESIUM SULFATE 3 GM in DEXTROSE 5% 100 ML IVPB (15:37)
[2018-08-29] MEDS: PANTOPRAZOLE 40 MG INJ IV (17:17)
[2018-08-29] MEDS: ATORVASTATIN 80 MG TAB PO (20:25)
[2018-08-30] MEDS ORDERED: PANTOPRAZOLE (EC) 40 MG TAB PO (06:30)
[2018-08-30] MEDS: PANTOPRAZOLE (EC) 40 MG TAB PO ×2 (06:53→18:52)
[2018-08-30] MEDS: ACCU-CHEK XX ×2 (07:41→18:30)
[2018-08-30] MEDS: ASPIRIN 81 MG TAB PO (08:18)
[2018-08-30] MEDS: LISINOPRIL 10 MG TAB PO ×2 (08:18→20:56)
[2018-08-30] MEDS: METOCLOPRAMIDE 5 MG TAB PO (08:18)
[2018-08-30] MEDS: DOCUSATE SODIUM 100 MG CAP PO ×2 (08:18→20:55)
[2018-08-30] MEDS: SENNA TAB PO (08:18)
[2018-08-30] MEDS: metFORMIN 500 MG TAB PO ×2 (08:19→18:49)
[2018-08-30] MEDS: HYDROCODONE/APAP (5/325) TAB PO ×2 (08:23→21:05)
[2018-08-30] MEDS: ENOXAPARIN 40 MG/0.4 ML SYG SC (08:23)
[2018-08-30] MEDS: AMLODIPINE 2.5 MG TAB PO (09:00)
[2018-08-30 11:48] LABS: MAGNESIUM 2.1 mg/dl (1.7-2.5)
[2018-08-30] MEDS: ATORVASTATIN 80 MG TAB PO (20:55)
[2018-08-31] MEDS: PANTOPRAZOLE (EC) 40 MG TAB PO ×2 (06:04→17:59)
[2018-08-31] MEDS: ACCU-CHEK XX ×2 (08:02→17:59)
[2018-08-31] MEDS: SENNA TAB PO (08:29)
[2018-08-31] MEDS: metFORMIN 500 MG TAB PO ×2 (08:29→17:59)
[2018-08-31] MEDS: DOCUSATE SODIUM 100 MG CAP PO ×2 (08:29→21:19)
[2018-08-31] MEDS: LISINOPRIL 10 MG TAB PO ×2 (08:29→21:19)
[2018-08-31] MEDS: ASPIRIN 81 MG TAB PO (08:29)
[2018-08-31] MEDS: ENOXAPARIN 40 MG/0.4 ML SYG SC (08:30)
[2018-08-31] MEDS: AMLODIPINE 2.5 MG TAB PO (08:30)
[2018-08-31] MEDS ORDERED: metFORMIN 500 MG TAB PO (17:35)
[2018-08-31] MEDS: ATORVASTATIN 80 MG TAB PO (21:19)
[2018-08-31] MEDS: HYDROCODONE/APAP (5/325) TAB PO (21:22)
[2018-09-01] MEDS: PANTOPRAZOLE (EC) 40 MG TAB PO ×2 (06:52→18:06)
[2018-09-01] MEDS: ACCU-CHEK XX ×2 (07:56→17:16)
[2018-09-01] MEDS: metFORMIN 500 MG TAB PO ×2 (07:57→17:17)
[2018-09-01] MEDS: ASPIRIN 81 MG TAB PO (09:06)
[2018-09-01] MEDS: DOCUSATE SODIUM 100 MG CAP PO ×2 (09:06→20:36)
[2018-09-01] MEDS: SENNA TAB PO (09:06)
[2018-09-01] MEDS: LISINOPRIL 10 MG TAB PO ×2 (09:07→20:36)
[2018-09-01] MEDS: AMLODIPINE 2.5 MG TAB PO (09:07)
[2018-09-01] MEDS: ENOXAPARIN 40 MG/0.4 ML SYG SC (09:09)
[2018-09-01] MEDS: HYDROCODONE/APAP (5/325) TAB PO ×2 (10:57→20:36)
[2018-09-01] MEDS: LACTULOSE 30ML CUP PO (17:12)
[2018-09-01] MEDS: ATORVASTATIN 80 MG TAB PO (20:36)
[2018-09-02] MEDS: PANTOPRAZOLE (EC) 40 MG TAB PO ×2 (06:41→17:42)
[2018-09-02] MEDS: ACCU-CHEK XX ×2 (07:05→17:41)
[2018-09-02] MEDS: metFORMIN 500 MG TAB PO ×2 (08:09→17:42)
[2018-09-02] MEDS: METOCLOPRAMIDE 5 MG TAB PO (08:55)
[2018-09-02] MEDS: LISINOPRIL 10 MG TAB PO ×2 (08:56→20:22)
[2018-09-02] MEDS: AMLODIPINE 2.5 MG TAB PO (08:56)
[2018-09-02] MEDS: DOCUSATE SODIUM 100 MG CAP PO ×2 (08:56→20:22)
[2018-09-02] MEDS: ASPIRIN 81 MG TAB PO (08:56)
[2018-09-02] MEDS: HYDROCODONE/APAP (5/325) TAB PO (08:57)
[2018-09-02] MEDS: BACLOFEN 10 MG TAB PO (08:57)
[2018-09-02] MEDS: SENNA TAB PO (08:57)
[2018-09-02] MEDS: ENOXAPARIN 40 MG/0.4 ML SYG SC (08:58)
[2018-09-02] MEDS: ATORVASTATIN 80 MG TAB PO (20:22)
[2018-09-03] MEDS: HYDROCODONE/APAP (5/325) TAB PO ×2 (00:45→15:48)
[2018-09-03] MEDS: PANTOPRAZOLE (EC) 40 MG TAB PO ×2 (06:42→17:31)
[2018-09-03] MEDS: ACCU-CHEK XX ×2 (07:56→17:31)
[2018-09-03] MEDS: metFORMIN 500 MG TAB PO ×2 (07:56→17:31)
[2018-09-03] MEDS: ASPIRIN 81 MG TAB PO (08:31)
[2018-09-03] MEDS: AMLODIPINE 2.5 MG TAB PO (08:32)
[2018-09-03] MEDS: DOCUSATE SODIUM 100 MG CAP PO ×2 (08:32→20:01)
[2018-09-03] MEDS: SENNA TAB PO (08:32)
[2018-09-03] MEDS: LISINOPRIL 10 MG TAB PO ×2 (08:33→20:01)
[2018-09-03] MEDS: ENOXAPARIN 40 MG/0.4 ML SYG SC (08:34)
[2018-09-03] MEDS: ATORVASTATIN 80 MG TAB PO (20:01)
[2018-09-04] MEDS: PANTOPRAZOLE (EC) 40 MG TAB PO ×2 (06:26→17:25)
[2018-09-04] MEDS: metFORMIN 500 MG TAB PO ×2 (07:45→17:24)
[2018-09-04] MEDS: ACCU-CHEK XX ×2 (07:46→17:24)
[2018-09-04] MEDS: LISINOPRIL 10 MG TAB PO ×2 (08:47→20:16)
[2018-09-04] MEDS: ASPIRIN 81 MG TAB PO (08:47)
[2018-09-04] MEDS: AMLODIPINE 2.5 MG TAB PO (08:47)
[2018-09-04] MEDS: SENNA TAB PO (08:48)
[2018-09-04] MEDS: DOCUSATE SODIUM 100 MG CAP PO ×2 (08:48→20:16)
[2018-09-04] MEDS: ENOXAPARIN 40 MG/0.4 ML SYG SC (08:49)
[2018-09-04] MEDS: HYDROCODONE/APAP (5/325) TAB PO ×2 (13:23→20:16)
[2018-09-04] MEDS: ATORVASTATIN 80 MG TAB PO (20:16)
[2018-09-05] MEDS: PANTOPRAZOLE (EC) 40 MG TAB PO ×2 (06:16→17:16)
[2018-09-05] MEDS: ACCU-CHEK XX ×2 (07:40→17:19)
[2018-09-05] MEDS: metFORMIN 500 MG TAB PO ×2 (07:55→17:19)
[2018-09-05] MEDS: DOCUSATE SODIUM 100 MG CAP PO ×2 (08:56→20:14)
[2018-09-05] MEDS: ASPIRIN 81 MG TAB PO (08:56)
[2018-09-05] MEDS: AMLODIPINE 2.5 MG TAB PO (08:56)
[2018-09-05] MEDS: LISINOPRIL 10 MG TAB PO ×2 (09:07→20:13)
[2018-09-05] MEDS: SENNA TAB PO (09:08)
[2018-09-05] MEDS: ENOXAPARIN 40 MG/0.4 ML SYG SC (09:10)
[2018-09-05] MEDS: HYDROCODONE/APAP (5/325) TAB PO (18:55)
[2018-09-05] MEDS: ATORVASTATIN 80 MG TAB PO (20:14)
[2018-09-06] MEDS: PANTOPRAZOLE (EC) 40 MG TAB PO ×2 (06:18→17:18)
[2018-09-06] MEDS: ACCU-CHEK XX ×2 (07:05→17:20)
[2018-09-06] MEDS: SENNA TAB PO (08:10)
[2018-09-06] MEDS: DOCUSATE SODIUM 100 MG CAP PO ×2 (08:10→20:30)
[2018-09-06] MEDS: ASPIRIN 81 MG TAB PO (08:11)
[2018-09-06] MEDS: LISINOPRIL 10 MG TAB PO ×2 (08:11→20:31)
[2018-09-06] MEDS: AMLODIPINE 2.5 MG TAB PO (08:11)
[2018-09-06] MEDS: metFORMIN 500 MG TAB PO ×2 (08:11→17:20)
[2018-09-06] MEDS: ENOXAPARIN 40 MG/0.4 ML SYG SC (08:12)
[2018-09-06] MEDS: HYDROCODONE/APAP (5/325) TAB PO ×2 (08:30→18:52)
[2018-09-06] MEDS: ATORVASTATIN 80 MG TAB PO (20:30)
[2018-09-07] MEDS: PANTOPRAZOLE (EC) 40 MG TAB PO (06:06)
[2018-09-07] MEDS: ACCU-CHEK XX (07:45)
[2018-09-07] MEDS: SENNA TAB PO (08:17)
[2018-09-07] MEDS: metFORMIN 500 MG TAB PO (08:17)
[2018-09-07] MEDS: LISINOPRIL 10 MG TAB PO (08:17)
[2018-09-07] MEDS: AMLODIPINE 2.5 MG TAB PO (08:17)
[2018-09-07] MEDS: DOCUSATE SODIUM 100 MG CAP PO (08:17)
[2018-09-07] MEDS: ASPIRIN 81 MG TAB PO (08:17)
[2018-09-07] MEDS: ENOXAPARIN 40 MG/0.4 ML SYG SC (08:19)
[2018-09-07] MEDS: HYDROCODONE/APAP (5/325) TAB PO ×2 (08:25→12:19)
== END 2018-09-07 15:00 | disposition home health service (06) | DRG 945 ==
LOC: VRC 20:14
PROC: F07Z5ZZ Bed Mobility Treatment (ICD-10-PCS; principal; 2018-08-12)
PROC: F08Z2ZZ Grooming/Personal Hygiene Treatment (ICD-10-PCS; 2018-08-12)
PROC: F08Z1ZZ Dressing Techniques Treatment (ICD-10-PCS; 2018-08-12)
PROC: F08Z0ZZ Bathing/Showering Techniques Treatment (ICD-10-PCS; 2018-08-12)
PROC: F06ZDZZ Swallowing Dysfunction Treatment (ICD-10-PCS; 2018-08-12)
PROC: F07Z8ZZ Transfer Training Treatment (ICD-10-PCS; 2018-08-12)
DX: Z51.89 Encounter for other specified aftercare (principal); I63.89 Other cerebral infarction; G81.94 Hemiplegia, unspecified affecting left nondominant side; G81.91 Hemiplegia, unspecified affecting right dominant side; R13.10 Dysphagia, unspecified; N83.209 Unspecified ovarian cyst, unspecified side; K27.9 Peptic ulcer, site unspecified, unspecified as acute or chronic, without hemorrhage or perforation; I10 Essential (primary) hypertension; E11.9 Type 2 diabetes mellitus without complications; I65.23 Occlusion and stenosis of bilateral carotid arteries; Z74.09 Other reduced mobility; R19.09 Other intra-abdominal and pelvic swelling, mass and lump; Z79.4 Long term (current) use of insulin; E78.5 Hyperlipidemia, unspecified; R19.00 Intra-abdominal and pelvic swelling, mass and lump, unspecified site; R97.1 Elevated cancer antigen 125 [CA 125]; M79.18 Myalgia, other site; K29.70 Gastritis, unspecified, without bleeding
CPT/HCPCS: 74176; 80048; 80053; 81001; 82962; 83735; 85025; 86305; 87081; 87086; 90686; 92507; 92523; 92526; 92610; 93971; 97110; 97112; 97116; 97163; 97530; 97535; 97542

== ENCOUNTER 2019-04-07 23:01 | Inpatient (IN) | payer OTHER ==
[2019-04-08] MEDS: morphine 4 MG/ML VIAL IV (00:54)
[2019-04-08] MEDS: SOD CHLORIDE 0.9% 500 ML IV (00:54)
[2019-04-08] MEDS: ONDANSETRON 4 MG INJ IV (00:54)
[2019-04-08 01:05] LABS: ADD MAN DIFF? NO
[2019-04-08 01:11] LABS: WHITE BLOOD COUNT 13.7 10^3/ul (4.8-10.8)
[2019-04-08 01:11] LABS: BASOPHIL # 0.1 10^3/ul (0.0-0.1); BASOPHILS % 0.7 % (0.0-2.0); EOSINOPHILS # 0.4 10^3/ul (0.0-0.5); EOSINOPHILS % 2.6 % (0.0-7.0); HEMATOCRIT 37.7 % (37.0-47.0); HEMOGLOBIN 12.2 g/dl (12.0-16.0); LYMPHOCYTES # 2.7 10^3/ul (0.8-2.9); LYMPHOCYTES % 19.5 % (15.0-51.0); MEAN CORPUSCULAR HEMOGLOBIN 27.1 pg (29.0-33.0); MEAN CORPUSCULAR HGB CONC 32.4 g/dl (32.0-37.0); MEAN CORPUSCULAR VOLUME 83.6 fl (82.0-101.0); MONOCYTE # 0.6 10^3/ul (0.3-0.9); MONOCYTES % 4.6 % (0.0-11.0); NEUTROPHIL # 9.9 10^3/ul (1.6-7.5); NEUTROPHILS % 72.2 % (39.0-77.0); PLATELET COUNT 366 10^3/UL (140-415); RED BLOOD COUNT 4.51 10^6/ul (4.20-5.40); RED CELL DISTRIBUTION WIDTH 13.3 % (11.5-14.5)
[2019-04-08 01:21] LABS: ADD UMIC NO; UR ASCORBIC ACID NEGATIVE (NEGATIVE); UR BILIRUBIN (Dip) NEGATIVE (NEGATIVE); UR BLOOD (Dip) NEGATIVE (NEGATIVE); UR CLARITY CLEAR (CLEAR); UR COLOR YELLOW (YELLOW); UR GLUCOSE (Dip) NEGATIVE (NEGATIVE); UR KETONES (Dip) NEGATIVE (NEGATIVE); UR LEUKOCYTE ESTERASE (Dip) NEGATIVE Leu/ul (NEGATIVE); UR NITRITE (Dip) NEGATIVE (NEGATIVE); UR SPECIFIC GRAVITY (Dip) 1.008 (1.003-1.030); UR TOTAL PROTEIN (Dip) NEGATIVE (NEGATIVE); UR UROBILINOGEN (Dip) NEGATIVE (NEGATIVE)
[2019-04-08 01:36] LABS: ALANINE AMINOTRANSFERASE 27 IU/L (13-69); ALBUMIN 4.7 g/dl (3.3-4.9); ALBUMIN/GLOBULIN RATIO 1.09; ALKALINE PHOSPHATASE 127 IU/L (42-121); ANION GAP 14 (5-13); ASPARTATE AMINO TRANSFERASE 24 IU/L (15-46); BILIRUBIN,INDIRECT 0.6 mg/dl (0-1.1); BILIRUBIN,TOTAL 0.6 mg/dl (0.2-1.3); BLOOD UREA NITROGEN 11 mg/dl (7-20); CALCIUM 10.2 mg/dl (8.4-10.2); CARBON DIOXIDE 24 mmol/L (21-31); CHLORIDE 101 mmol/L (97-110); CREATININE 0.99 mg/dl (0.44-1.00); Estimated GFR 56 mL/min (>60); GLUCOSE 118 mg/dl (70-220); LIPASE 140 U/L (23-300); SODIUM 139 mmol/L (135-144)
[2019-04-08 01:46] LABS: TROPONIN-I < 0.012 ng/ml (0.000-0.120)
[2019-04-08] MEDS ORDERED: ACETAMINOPHEN 325 MG TAB PO ×2 (04:00→13:30)
[2019-04-08] MEDS ORDERED: ONDANSETRON 4 MG INJ IV ×2 (04:00→13:30)
[2019-04-08] MEDS ORDERED: DOCUSATE SODIUM 100 MG CAP PO (13:30)
[2019-04-08] MEDS ORDERED: GLUCOSE GEL 15 GRAM TUBE PO ×2 (13:30)
[2019-04-08] MEDS ORDERED: GLUCOSE GEL 15 GRAM TUBE BUCCAL (13:30)
[2019-04-08] MEDS ORDERED: GLUCAGON 1 MG INJ IM (13:30)
[2019-04-08] MEDS ORDERED: DEXTROSE 50% 50 ML SYRINGE IV ×2 (13:30)
[2019-04-08] MEDS ORDERED: BISACODYL (EC) 5 MG TAB PO (13:30)
[2019-04-08] MEDS ORDERED: morphine 2 MG INJ IV (13:30)
[2019-04-08] MEDS: INSULIN ASPART [NOVOLOG] 3 ML PEN SC ×2 (17:26→21:00)
[2019-04-08] MEDS: PANTOPRAZOLE (EC) 40 MG TAB PO (17:27)
[2019-04-08] MEDS: ATORVASTATIN 80 MG TAB PO (20:48)
[2019-04-08] MEDS: LISINOPRIL 10 MG TAB PO (20:49)
[2019-04-08] MEDS: INSULIN GLARGINE [LANTus] (100 UNITS/ML) SYG SC (20:53)
[2019-04-09] MEDS: ACCU-CHEK XX (02:00)
[2019-04-09 06:09] LABS: ADD MAN DIFF? NO
[2019-04-09] MEDS: PANTOPRAZOLE (EC) 40 MG TAB PO ×2 (06:10→17:05)
[2019-04-09 06:15] LABS: BASOPHIL # 0.1 10^3/ul (0.0-0.1); BASOPHILS % 1.2 % (0.0-2.0); EOSINOPHILS # 0.4 10^3/ul (0.0-0.5); EOSINOPHILS % 4.8 % (0.0-7.0); HEMATOCRIT 33.6 % (37.0-47.0); LYMPHOCYTES # 2.6 10^3/ul (0.8-2.9); LYMPHOCYTES % 33.3 % (15.0-51.0); MEAN CORPUSCULAR HEMOGLOBIN 27.2 pg (29.0-33.0); MEAN CORPUSCULAR HGB CONC 32.7 g/dl (32.0-37.0); MEAN PLATELET VOLUME 10.1 fl (7.4-10.4); MONOCYTE # 0.5 10^3/ul (0.3-0.9); MONOCYTES % 6.3 % (0.0-11.0); NEUTROPHIL # 4.2 10^3/ul (1.6-7.5); NEUTROPHILS % 54.1 % (39.0-77.0); PLATELET COUNT 326 10^3/UL (140-415); RED BLOOD COUNT 4.05 10^6/ul (4.20-5.40); RED CELL DISTRIBUTION WIDTH 13.2 % (11.5-14.5)
[2019-04-09 06:15] LABS: WHITE BLOOD COUNT 7.7 10^3/ul (4.8-10.8)
[2019-04-09 06:46] LABS: ALANINE AMINOTRANSFERASE 16 IU/L (13-69); ALBUMIN 3.8 g/dl (3.3-4.9); ALBUMIN/GLOBULIN RATIO 1.11; ALKALINE PHOSPHATASE 84 IU/L (42-121); ANION GAP 7 (5-13); ASPARTATE AMINO TRANSFERASE 23 IU/L (15-46); BILIRUBIN,INDIRECT 0.9 mg/dl (0-1.1); BILIRUBIN,TOTAL 0.9 mg/dl (0.2-1.3); BLOOD UREA NITROGEN 10 mg/dl (7-20); CALCIUM 9.7 mg/dl (8.4-10.2); CARBON DIOXIDE 28 mmol/L (21-31); CHLORIDE 107 mmol/L (97-110); CHOL/HDL RATIO 4.9 RATIO; CHOLESTEROL 193 mg/dl (100-200); CREATININE 0.84 mg/dl (0.44-1.00); Estimated GFR > 60 mL/min (>60); GLUCOSE 76 mg/dl (70-220); HDL CHOLESTEROL 39 mg/dl (35-98); LDL CHOLESTEROL,CALCULATED 129 mg/dl; MAGNESIUM 1.8 mg/dl (1.7-2.5); PHOSPHORUS 4.4 mg/dl (2.5-4.9); POTASSIUM 4.6 mmol/L (3.5-5.1); SODIUM 142 mmol/L (135-144); TOTAL PROTEIN 7.2 g/dl (6.1-8.1); TRIGLYCERIDES 123 mg/dl (0-149)
[2019-04-09 07:11] LABS: HEMOGLOBIN A1C 5.9 % (0-5.9)
[2019-04-09] MEDS: INSULIN ASPART [NOVOLOG] 3 ML PEN SC ×4 (08:00→21:00)
[2019-04-09] MEDS: AMLODIPINE 2.5 MG TAB PO ×2 (09:10→14:20)
[2019-04-09] MEDS: LISINOPRIL 10 MG TAB PO ×2 (09:10→21:43)
[2019-04-09 13:28] LABS: CREATINE KINASE 48 IU/L (23-200)
[2019-04-09 13:39] LABS: CK INDEX 1.3; CK-MB 0.62 ng/ml (0.0-2.4); TROPONIN-I < 0.012 ng/ml (0.000-0.120)
[2019-04-09] MEDS: ASPIRIN 81 MG TAB PO (17:05)
[2019-04-09 19:13] LABS: CREATINE KINASE 53 IU/L (23-200)
[2019-04-09 19:24] LABS: CK INDEX 1.3; CK-MB 0.69 ng/ml (0.0-2.4); TROPONIN-I < 0.012 ng/ml (0.000-0.120)
[2019-04-09] MEDS: ATORVASTATIN 80 MG TAB PO (21:43)
[2019-04-09] MEDS: NACL 0.9% 3 ML SYG IV (21:44)
[2019-04-09] MEDS: INSULIN GLARGINE [LANTus] (100 UNITS/ML) SYG SC (21:57)
[2019-04-10 00:59] LABS: CREATINE KINASE 54 IU/L (23-200)
[2019-04-10 01:11] LABS: CK INDEX 1.5; CK-MB 0.83 ng/ml (0.0-2.4); TROPONIN-I 0.013 ng/ml (0.000-0.120)
[2019-04-10] MEDS: ACCU-CHEK XX (02:00)
[2019-04-10] MEDS: PANTOPRAZOLE (EC) 40 MG TAB PO (06:59)
[2019-04-10] MEDS: INSULIN ASPART [NOVOLOG] 3 ML PEN SC ×2 (08:00→12:00)
[2019-04-10] MEDS: AMLODIPINE 2.5 MG TAB PO (09:14)
[2019-04-10] MEDS: LISINOPRIL 10 MG TAB PO (09:14)
[2019-04-10] MEDS: ASPIRIN 81 MG TAB PO (09:14)
[2019-04-10] MEDS: REGADENOSON 0.4 MG/5 ML SYG (13:10)
== END 2019-04-10 19:30 | disposition home or self-care (01) | DRG 392 ==
LOC: E/R 23:01 → 2NE 04-08 03:35
DX: R19.03 Right lower quadrant abdominal swelling, mass and lump (principal); N13.30 Unspecified hydronephrosis; E11.9 Type 2 diabetes mellitus without complications; I10 Essential (primary) hypertension; E78.5 Hyperlipidemia, unspecified; Z79.82 Long term (current) use of aspirin; Z79.4 Long term (current) use of insulin; Z86.73 Personal history of transient ischemic attack (TIA), and cerebral infarction without residual deficits
CPT/HCPCS: 36415; 71045; 74176; 78452; 80053; 80061; 81003; 82550; 82553; 82962; 83036; 83690; 83735; 84100; 84484; 85025; 86304; 87040-91; 87086; 93005; 93017; 93306; 96374; 96375; 99285-25